=== PATIENT | female | born 1995 | race Caucasian/White ===

== ENCOUNTER 2018-09-11 01:27 | Inpatient (IN) | payer BC ==
[2018-10-15] MEDS ORDERED: ePHEDrine/0.9% NaCl/PF SYRINGE 50 mg/10 ml ONE (11:11)
[2018-10-15] MEDS ORDERED: Bupivacaine 0.25% HCL 30 ML VIAL ONE (11:11)
[2018-10-15] MEDS ORDERED: Carboprost 250 MCG/ML AMP IM PRN (20:15)
[2018-10-15] MEDS ORDERED: Meperidine HCl/PF 25 MG/ML VIAL IM/IV PRN (20:15)
[2018-10-15] MEDS ORDERED: Promethazine HCl 25 MG/ML VIAL IM PRN (20:15)
[2018-10-15] MEDS ORDERED: Acetaminophen 500 MG TAB PO PRN (20:15)
[2018-10-15] MEDS ORDERED: Ondansetron PF 4 MG/2 ML Vial IVP PRN (20:15)
[2018-10-15] MEDS ORDERED: HYDROcodone/Acetaminophen 5/325 mg Tablet PO PRN (20:15)
[2018-10-15] MEDS ORDERED: Butorphanol Tartrate 1 MG/ML VIAL SLOW IVP PRN (20:15)
[2018-10-15] MEDS ORDERED: NS / Oxytocin 40 units/1000ml 1,000 ML IV PRN (20:15)
[2018-10-15] MEDS ORDERED: Methylergonovine 0.2 MG/ML VIAL IM PRN (20:15)
[2018-10-15] MEDS ORDERED: Lidocaine 1% (PF) 30 ML VIAL SC PRN (20:15)
[2018-10-15] MEDS ORDERED: NS w/ Oxytocin 10 units 500 ML IV SCH (20:15)
[2018-10-15] MEDS ORDERED: Misoprostol 200 MCG TAB PR PRN (20:15)
[2018-10-15 20:20] VITALS: BMI 30.2
[2018-10-15] MEDS: Lactated Ringer's 1,000 ML IV SCH (20:36)
[2018-10-15] MEDS: Misoprostol 100 MCG TAB VAG SCH (20:37)
[2018-10-15 20:41] LABS: Hemoglobin 12.3 g/dL (12.0-16.0); Mean Corpuscular HGB CONC 33.2 g/dL (32.0-36.0); Mean Corpuscular Hemoglobin 31.6 pg (27.0-31.0); Mean Corpuscular Volume 95.4 fL (78.0-98.0); Mean Platelet Volume 8.2 fL (7.4-10.4); Platelet Count 223 thou/uL (130-400); RBC Distribution Width 12.8 % (11.5-14.5); Red Blood Cell (RBC) Count 3.87 mill/uL (4.20-5.40); White Blood Cell (WBC) Count 10.4 thou/uL (4.8-10.8)
[2018-10-15 21:21] LABS: Syphilis Antibody Nonreactive (Nonreactive); Syphilis Antibody Index 0.04 S/CO (<1.00 Non-Reactive)
[2018-10-15 22:37] LABS: HBSAg Index 0.36 S/CO (0-0.99); Hep B Surf Ag Non-Reactive S/CO (NonReactive)
[2018-10-16] MEDS: Misoprostol 100 MCG TAB VAG SCH ×6 (00:56→19:00)
[2018-10-16] MEDS: Lactated Ringer's 1,000 ML IV SCH ×2 (04:33→11:34)
--- NOTE | 2018-10-16 08:14 | PDOC.EVN ---
Event Note - Event Note Event Note: AROM with clear fluid. No complications. SVE /-1. FHT 130, moderate variability, no decels. Category I. Pitocin at 4. Epidural when patient requests.
--- NOTE | 2018-10-16 08:16 | PDOC.LDHP ---
Labor and Delivery H&P Chief complaint: scheduled induction HPI: 23 year old G1 at term for IOL. Current gestational age (weeks): 41 Due date: 10/09/18 Dating criteria: last menstrual period, first trimester ultrasound Grav: 1 Para: 0 Current complications: none Abnormal US findings: No Current medications: pre- vitamins Previous surgical history: none Allergies/Adverse Reactions: Allergies Allergy/AdvReac Type Severity Reaction Status Date / Time ibuprofen Allergy Severe Anaphylaxis Verified 10/15/18 20:11 - Physical Exam General: NAD, resting, breathing through contractions, other Heart: RRR Lungs: CTAB Abdomen: NTTP Extremeties: no edema FHT: category 1, variability present - Vaginal Exam cm dilated: 2 Effacement: 50% Station: -2 - OB Labs Blood type: A RH: positive Antibody Screen: negative HIV: negative RPR: negative HEPSAg: negative 1 hour GCT: negative GBS: negative Urine drug screen: negative Rubella: immune - Assessment L&D Assessment: medically indicated induction (Postdates) - Plan Plan: admit to L&D, cervical ripening, labor augmentation if indicated, anesthesia consult for pain management
[2018-10-16] MEDS ORDERED: Fentanyl 4 mcg/Bup 0.1% Cadd 100 ML ONE (11:23)
[2018-10-16] MEDS ORDERED: Fentanyl 100 MCG/2 ML VIAL ONE (11:32)
[2018-10-16] MEDS ORDERED: Fentanyl 100 MCG/2 ML VIAL EPIDURAL ONE (11:45)
[2018-10-16] MEDS ORDERED: diphenhydrAMINE 50 MG/ML VIAL IVP PRN (15:58)
[2018-10-16] MEDS ORDERED: ePHEDrine/0.9% NaCl/PF SYRINGE 50 mg/10 ml SLOW IVP PRN (15:58)
[2018-10-16] MEDS ORDERED: Ondansetron PF 4 MG/2 ML Vial IVP PRN (15:58)
[2018-10-16] MEDS ORDERED: Eucerin (Mineral Oil/Petrolatum,White) 30 gm Jar TOP PRN (15:58)
[2018-10-16] MEDS ORDERED: Promethazine HCl 25 MG/ML VIAL IM PRN (15:58)
[2018-10-16] MEDS ORDERED: Lactated Ringer's 500 ML IV PRN (15:58)
[2018-10-16] MEDS ORDERED: Naloxone HCl 0.4 mg/ml Vial IVP PRN ×2 (15:58)
[2018-10-16] MEDS ORDERED: Acetaminophen 325 MG TAB PO PRN (15:58)
[2018-10-16] MEDS ORDERED: Communication Order-Pharmacy FS SCH (16:00)
[2018-10-16] MEDS ORDERED: Fentanyl 4 mcg/Bupivacaine 0.1% Cassette 100 ML EPIDURAL SCH (16:00)
[2018-10-16] MEDS: NS / Oxytocin 40 units/1000ml 1,000 ML IV SCH ×2 (17:38→22:43)
[2018-10-16] MEDS ORDERED: Milk Of Magnesia 30 ML UDCUP PO PRN (18:40)
[2018-10-16] MEDS ORDERED: Lanolin Ointment 7 GM TUBE TOP PRN (18:40)
[2018-10-16] MEDS ORDERED: Preparation H Ointment 28 GM TUBE PR PRN (18:40)
[2018-10-16] MEDS ORDERED: Bisacodyl 10 MG SUPP PR PRN (18:40)
[2018-10-16] MEDS ORDERED: Benzocaine-Menthol 82.5 ML CAN TOP PRN (18:40)
[2018-10-16] MEDS: Docusate Calcium (SURFAK) 240 MG CAP PO SCH (22:37)
[2018-10-16] MEDS: HYDROcodone/Acetaminophen 5/325 mg Tablet PO PRN (22:37)
[2018-10-17] MEDS: Ferrous Sulfate 325 MG TAB PO SCH ×2 (07:35→17:01)
[2018-10-17] MEDS: Docusate Calcium (SURFAK) 240 MG CAP PO SCH ×2 (09:06→21:34)
[2018-10-17] MEDS: HYDROcodone/Acetaminophen 5/325 mg Tablet PO PRN ×3 (10:45→21:34)
--- NOTE | 2018-10-17 11:46 | PDOC.PP ---
Post Progress Note Post Day #: 1 Subjective: Doing well. no c/o. BF well. Lochia normal. PO intake tolerated: yes Flatus: yes Ambulation: yes Vital Signs (12 hours) Temp Pulse Resp BP Pulse Ox 10/17/18 08:30 98.7 F 72 20 122/77 98 10/17/18 04:40 98.4 F 82 16 112/65 10/17/18 02:20 98.4 F 102 H 16 121/62 Weight Weight 205 lb - Physical Examination General: NAD Cardiovascular: no m/r/g, RRR Respiratory: clear to auscultation bilaterally, non-labored breathing Abdominal: + bowel sounds, lochia, no distention, appropriately TTP Result Diagrams: 10/15/18 20:25 Additional Labs: Post Labs Blood Type A POSITIVE 10/15/18 20:25 Hep Bs Antigen Non-Reactive S/CO (NonReactive) 10/15/18 20:25 (1) Vaginal delivery Code(s): O80 - ENCOUNTER FOR FULL-TERM UNCOMPLICATED DELIVERY Status: Acute - Assessment/Plan Routine care D/C tomorrow Continue to work on .
[2018-10-18] MEDS: HYDROcodone/Acetaminophen 5/325 mg Tablet PO PRN ×2 (01:27→08:39)
[2018-10-18] MEDS: Ferrous Sulfate 325 MG TAB PO SCH (08:32)
[2018-10-18] MEDS: Docusate Calcium (SURFAK) 240 MG CAP PO SCH (08:39)
[2018-10-18 08:55] VITALS: BP 123/74; TEMP 98.1
--- NOTE | 2018-10-19 11:08 | PDOC.PP ---
Post Progress Note Post Day #: 2 Subjective: Doing well. Ready for D/C home PO intake tolerated: yes Flatus: yes Ambulation: yes Weight Weight 205 lb - Physical Examination General: NAD Cardiovascular: no m/r/g, RRR Respiratory: clear to auscultation bilaterally, non-labored breathing Abdominal: + bowel sounds, lochia, no distention, appropriately TTP Result Diagrams: 10/15/18 20:25 Additional Labs: Post Labs Blood Type A POSITIVE 10/15/18 20:25 Hep Bs Antigen Non-Reactive S/CO (NonReactive) 10/15/18 20:25 (1) Vaginal delivery Code(s): O80 - ENCOUNTER FOR FULL-TERM UNCOMPLICATED DELIVERY Status: Acute - Assessment/Plan Routine PP care D/C home F/U in 6 weeks
== END 2018-10-18 12:20 | disposition home or self-care (01) | DRG 807 ==
LOC: L&D/OP 01:27 → EDSTATUS 10-09 14:41 → L&D 10-15 19:32 → 3SW 10-16 21:56
PROVIDERS: ADMIT Family Medicine; ATTEND Family Medicine
PROC: 3E033VJ Introduction of Other Hormone into Peripheral Vein, Percutaneous Approach (ICD-10-PCS; principal; 2018-10-16)
PROC: 10E0XZZ Delivery of Products of Conception, External Approach (ICD-10-PCS; 2018-10-16)
PROC: 0HQ9XZZ Repair Perineum Skin, External Approach (ICD-10-PCS; 2018-10-16)
DX: O48.0 Post-term pregnancy (principal); Z37.0 Single live birth; Z3A.41 41 weeks gestation of pregnancy; O70.0 First degree perineal laceration during delivery
CPT/HCPCS: 36415; 51702; 85027; 86780; 86850; 86900; 86901; 87340; J0595; J2001; J2590; J3010; S0020